=== PATIENT | male | born 1965 | race Caucasian/White ===

== ENCOUNTER 2017-07-05 01:29 | Emergency (ER) | payer MEDICAID, SELFPAY ==
[2017-07-05] MEDS ORDERED: Naproxen 550 mg Tab PO STA (02:19)
--- NOTE | 2017-07-05 02:35 | C.PDOC ---
History Of Present Illness 52 year old male presents to the ED with complaints neck pain, left shoulder and arm pain that is worsened by movement for 5-6 days. 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 He denies any weakness, numbness, or any other complaints at this time. Time Seen by Provider: 07/05/17 02:02 Chief Complaint (Nursing): Back Pain History Per: Patient History/Exam Limitations: no limitations Onset/Duration Of Symptoms: Days (5-6 days) Current Symptoms Are (Timing): Still Present Quality Of Discomfort: "Pain" Previous Symptoms: None Associated Symptoms: None Exacerbating Factor(s): Movement Recent travel outside of the [place]: No Past Medical History Reviewed: Historical Data, Nursing Documentation, Vital Signs Vital Signs: Last Vital Signs Temp 98.0 F 07/05/17 03:03 Pulse 83 07/05/17 03:03 Resp 16 07/05/17 03:03 BP 119/72 07/05/17 03:03 Pulse Ox 99 07/05/17 03:03 - [facility] Procedures CLOSURE SKIN & SUBCUTANEOUS NEC (05/18/13) TETANUS TOXOID ADMINIST (05/18/13) Family History: States: Unknown Family Hx - Social History Hx Tobacco Use: No Hx Alcohol Use: Yes Hx Substance Use: No - Immunization History Hx Tetanus Toxoid Vaccination: No Hx Influenza Vaccination: No Hx Pneumococcal Vaccination: No Review Of Systems Constitutional: Negative for: Fever, Chills Cardiovascular: Negative for: Chest Pain, Palpitations Respiratory: Negative for: Cough, Shortness of Breath Gastrointestinal: Negative for: Nausea, Vomiting, Abdominal Pain, Diarrhea Musculoskeletal: Positive for: Neck Pain, Shoulder Pain (left), Arm Pain (left ) Physical Exam - Physical Exam Appears: Non-toxic, No Acute Distress Skin: Warm, Dry Head: Atraumatic, Normacephalic Eye(s): bilateral: Normal Inspection, PERRL, EOMI Oral Mucosa: Moist Neck: Normal ROM (pain with ROM ), Paracervical Tenderness (left sided ) Chest: Symmetrical, No Deformity Cardiovascular: Rhythm Regular, No Murmur Respiratory: Normal Breath Sounds, No Rales, No Rhonchi, No Wheezing Gastrointestinal/Abdominal: Soft, No Tenderness, No Distention, No Guarding, No Rebound Extremity: Normal ROM, No Tenderness Neurological/Psych: Oriented x3 ED Course And Treatment O2 Sat by Pulse Oximetry: 96 (RA) Progress Note: EKG was ordered and patient was given Flexeril and Naproxen. Medical Decision Making Medical Decision Making: ekg sinus charanjit [address] t wave changes 2:50am patient is sleeping and in no acute distress. Upon being awake, he states he is feeling better and requesting to be discharged. no direct trauma. no indication for imaging. Disposition - Disposition Referrals: [facility] [Outside] [facility] [Outside] Disposition: HOME/ ROUTINE Disposition Time: 03:00 Condition: STABLE Additional Instructions: please follow up with your doctor. return to er with worsening symptoms or concerns. you may need further testing as an outpt. Prescriptions: Cyclobenzaprine [Cyclobenzaprine HCl] 10 mg PO DAILY #7 tab Naproxen [Naprosyn] 500 mg PO BID PRN #14 tablet PRN Reason: Pain, Mild (1-3) Instructions: Acute Low Back Pain (ED), Cervical Sprain (ED) Forms: [facility] ([facility]) - Clinical Impression Clinical Impression: Neck pain, Back pain - Scribe Statement The provider has reviewed the documentation as recorded by the Scribe Chelsey Liz All medical record entries made by the Scribe were at my direction and personally dictated by me. I have reviewed the chart and agree that the record accurately reflects my personal performance of the history, physical exam, medical decision making, and the department course for this patient. I have also personally directed, reviewed, and agree with the discharge instructions and disposition.
[2017-07-05] MEDS ORDERED: Naproxen 550 mg Tab PO ONE (02:47)
[2017-07-05 03:03] VITALS: BP 119/72; PULSE 83; RESP 16; TEMP 98
[2017-07-05 03:58] VITALS: O2SAT 96
--- NOTE | 2017-07-07 18:01 | CARD ---
APPROVED REPORT EKG Measurement Heart [id number] CT 200P55 [id number] <Conclusion> Sinus bradycardia Otherwise normal ECG
== END 2017-07-05 03:04 | disposition home or self-care (01) ==
LOC: C.ER 01:29
DX: M54.2 Cervicalgia (principal); M54.9 Dorsalgia, unspecified